=== PATIENT | female | born 1990 | race Caucasian/White ===

== ENCOUNTER → 2018-12-16 | Outpatient (CLI) | payer OTHER ==
--- NOTE | 2018-12-16 15:54 | RADIOLOGY REPORT (SQ) ---
EXAM DESCRIPTION: U/S OB TRANSVAGINAL W/O DOP COMPLETED DATE/TIME: 12/16/2018 3:17 pm REASON FOR STUDY: Z32.01 ENCOUNTER FOR TEST, RESULT POSITIVE Z32.01 ENCOUNTER FOR PREGNAN CY TEST, RESULT POSITIVE COMPARISON: None. TECHNIQUE: Transvaginal static and realtime grayscale images acquired of the pelvis. Additional walter cted spectral and color Doppler images recorded. All images stored on PACs. bHCG: Not available. CLINICAL DATES: OCTAVIO: 08/12/2019. EGA: 5 weeks 6 days LIMITATIONS: None. FINDINGS: FETUS: No intrauterine identified. ULTRASOUND EGA: Not available ULTRASOUND OCTAVIO: Not available EFW: Not applicable. CRL: Not visualized FHR: Not visualized. SURVEY: Not obtained. No fetus visualized. AMNIOTIC FLUID: Not visualized. PLACENTA: Not visualized. SUBCHORIONIC BLEED: Not applicable. SIZE OF BLEED: Not applicable. UTERUS: The uterus measures 6.5 x 3.9 x 3.9 cm. No masses. No anomalies. CERVICAL LENGTH: 1.9 cm Closed. RIGHT ADNEXA: The right ovary measures 3.9 x 2.7 x 3.0 cm. A complex structure in the right ovary m easures 2.0 x 1.9 x 1.7 cm. Normal vascular flow within the ovary. LEFT ADNEXA: The left ovary measures 2.7 x 2.5 x 2.4 cm. Normal ovary with normal vascular flow. FREE FLUID: Moderate amount of free fluid in the cul-de-sac. OTHER: The endometrial stripe measures 7.0 mm. IMPRESSION: 1. No evidence of an IUP. Correlation and correlation with lab values suggested. 2. A complex right ovarian structure as above. Considerations for this finding includes possible he morrhagic corpus luteum cyst. 3. Moderate amount of free fluid in the cul-de-sac. TECHNICAL DOCUMENTATION: JOB ID: [id number] [employer]- All Rights Reserved Reading location - IP/workstation name: [email or web address]
== END ==
LOC: LAB 12:02
PROVIDERS: ATTEND Student in an Organized Health Care Education/Training Program
DX: Z32.01 Encounter for pregnancy test, result positive (principal)
CPT/HCPCS: 36415; 76817; 84702

== ENCOUNTER → 2018-12-23 | Outpatient (CLI) | payer OTHER ==
--- NOTE | 2018-12-24 08:40 | RADIOLOGY REPORT (SQ) ---
EXAM DESCRIPTION: U/S OB TRANSVAGINAL W/O DOP COMPLETED DATE/TIME: 12/23/2018 6:11 pm REASON FOR STUDY: PELVIC PAIN, Z34.00 ENCNTR FOR SUPRVSN OF NORMAL FIRST , UNSP TR COMPARISON: 12/16/2018. TECHNIQUE: Transvaginal static and realtime grayscale images acquired of the pelvis. Additional walter cted spectral and color Doppler images recorded. All images stored on PACs. bHCG: Greater than 2000. CLINICAL DATES: 6 week 6 day. LIMITATIONS: None. FINDINGS: FETUS: Single Living intrauterine . ULTRASOUND EGA: 5 week 5 day. ULTRASOUND OCTAVIO: 08/20/2019. EFW: Not applicable less than 20 weeks. GESTATIONAL SAC: Slightly irregular gestational sac. CRL: 0.2 cm. FHR: No cardiac activity detected. SUBCHORIONIC BLEED: No. SIZE OF BLEED: Not applicable. UTERUS: No masses. No anomalies. CERVICAL LENGTH: 2.2 cm. Closed. RIGHT ADNEXA: Normal ovary with normal vascular flow. No adnexal free fluid. Complex cyst measuring 1.4 x 1.7 cm. LEFT ADNEXA: Normal ovary with normal vascular flow. No adnexal free fluid. No adnexal masses. FREE FLUID: None. OTHER: No other significant finding. IMPRESSION: INTRAUTERINE GESTATION. SLIGHTLY IRREGULAR GESTATIONAL SAC. TINY POLE WITH NO CA RDIAC ACTIVITY DETECTED. COMPLEX CYST IN THE RIGHT OVARY. REPEAT ULTRASOUND IN SEVERAL DAYS WILL BE NECESSARY TO CONFIRM NORMAL DEVELOPMENT AND CONFIRM DEVELOPMENT OF A HEARTBEAT. EGA 5 WEEK 5 DAY. Trimester of : First - 0 to 13 weeks. TECHNICAL DOCUMENTATION: JOB ID: [id number]- All Rights Reserved rev Reading location - IP/workstation name: [email or web address]
== END ==
LOC: RAD 15:43
PROVIDERS: ATTEND Student in an Organized Health Care Education/Training Program
DX: O26.899 Other specified pregnancy related conditions, unspecified trimester (principal); R10.2 Pelvic and perineal pain; Z3A.00 Weeks of gestation of pregnancy not specified
CPT/HCPCS: 76817

== ENCOUNTER → 2018-12-29 | Outpatient (CLI) | payer OTHER ==
--- NOTE | 2018-12-29 16:05 | RADIOLOGY REPORT (SQ) ---
EXAM DESCRIPTION: U/S OB TRANSVAGINAL W/O DOP COMPLETED DATE/TIME: 12/29/2018 3:29 pm REASON FOR STUDY: Z32.01 ENCOUNTER FOR TEST, RESULT POSITIVE Z32.01 ENCOUNTER FOR PREGNAN CY TEST, RESULT POSITIVE COMPARISON: 12/23/2018 TECHNIQUE: Transvaginal static and realtime grayscale images acquired of the pelvis. Additional walter cted spectral and color Doppler images recorded. All images stored on PACs. bHCG: Not available CLINICAL DATES: LMP 11/05/2018. 7 weeks 5 days. LIMITATIONS: None. FINDINGS: FETUS: Single Living intrauterine . ULTRASOUND EGA: 6 weeks 4 days based upon gestational sac size. ULTRASOUND OCTAVIO: 08/20/2019 EFW: Not applicable less than 20 weeks. CRL: A pole is not seen. FHR: Not applicable. Beats per minute. SURVEY: Not applicable. AMNIOTIC FLUID: Adequate amount. PLACENTA: Not yet developed due to early gestation. SUBCHORIONIC BLEED: No SIZE OF BLEED: Not applicable. UTERUS: No masses. No anomalies. CERVICAL LENGTH: 2.3 cm. Closed. RIGHT ADNEXA: Normal ovary with normal vascular flow. 3.4 x 2.7 x 2.2 cm. No adnexal free fluid. No adnexal masses. LEFT ADNEXA: Normal ovary with normal vascular flow. 2.6 x 1.5 x 1.7 cm. No adnexal free fluid. No adnexal masses. FREE FLUID: None. OTHER: No other significant finding. IMPRESSION: An intrauterine gestational sac is present suggesting an gestation of 6 weeks 4 days. Y olk sac is not present. pole is not present. Follow-up as clinically indicated. TECHNICAL DOCUMENTATION: JOB ID: [id number]- All Rights Reserved rev-01/29 Reading location - IP/workstation name: [email or web address]
== END ==
LOC: RAD 10:26
PROVIDERS: ATTEND Student in an Organized Health Care Education/Training Program
DX: Z32.01 Encounter for pregnancy test, result positive (principal)
CPT/HCPCS: 76817